=== PATIENT | male | born 1970 | race Caucasian/White ===

== ENCOUNTER → 2022-04-27 07:32 | Outpatient (CLI) | payer OTHER, SELFPAY ==
--- NOTE | 2022-04-27 | DI.MRI.S_ITS ---
PROCEDURE: MR KNEE LT WO CON INDICATIONS: Pain in left knee TECHNIQUE: Noncontrast sagittal PD fast spin echo and T2 fast spin echo with fat saturation, sagittal 3-D FLASH with fat saturation; coronal T1 spin echo and PD fast spin echo with fat saturation, and axial PD fast spin echo with fat saturation through the knee. COMPARISON: None. FINDINGS: Image quality: Excellent. Menisci: Peripheral displacement of medial meniscus bowing medial collateral ligament is seen. There is suggestion of oblique tear involving medial periphery of posterior horn medial meniscus extending to inferior articulating surface. Lateral meniscus is intact. The meniscal root ligaments appear intact. Cruciate ligaments: The anterior cruciate ligament is mildly thickened with subtle intrasubstance T2 hyperintense signal at its tibial insertion. PCL is intact. Medial structures: The medial collateral ligament appears mildly thickened. The posterior oblique ligament, semimembranosus tendon insertions, oblique popliteal ligament, and meniscocapsular junction appear intact. Visualized portions of the pes anserinus tendons appear normal. No abnormal bursal fluid. Lateral structures: The lateral collateral ligament is thickened with intrasubstance T2 hyperintense signal. The long and short heads of the biceps femoris tendon appear intact. The popliteus tendon appears normal; the popliteofibular ligament appears intact. Iliotibial band appears normal. Anterior structures: Distal quadriceps tendinosis and low-grade partial-thickness tear at its superior patellar insertion is seen. Patellar tendon is intact.. Patellar alignment is normal. No femoral trochlear dysplasia or ventral trochlear prominence. No edema in the infrapatellar fat pad. Bones and cartilage: Mild edema and subcortical cystic changes are noted involving lateral portion of tibial spine near distal ACL insertion. No discrete fracture line. Mild tricompartmental osteoarthritis and low-grade chondromalacia is seen. Joint space: There is small knee joint fluid. No Marshall's cyst. Normal appearing synovial plicae are incidentally noted. IMPRESSION: 1. Peripheral displacement of medial meniscus with oblique tear involving posterior horn of medial meniscus extending to inferior articulating surface. Lateral meniscus is intact. 2. Suggestion of mild distal ACL sprain/partial-thickness tear. No full-thickness ACL rupture. PCL is intact. 3. Very low-grade MCL sprain. Low to moderate grade LCL sprain/partial-thickness tear. 4. Distal quadriceps tendinosis/low-grade partial-thickness tear at its superior patellar insertion. Patellar tendon is intact. 5. Mild tricompartmental osteoarthritis and low-grade chondromalacia. No fracture or dislocation. Small joint effusion, no gross loose bodies. Dictated by: Hemanth Lawson M.D. on 04/27/2022 at 9:14 Approved by: Hemanth Lawson M.D. on 04/27/2022 at 9:17
== END ==
PROVIDERS: PCP Family Medicine; Referring Provider Family Medicine; Visit Provider Family Medicine
DX: S83.222A Peripheral tear of medial meniscus, current injury, left knee, initial encounter (principal); S83.422A Sprain of lateral collateral ligament of left knee, initial encounter; S76.112A Strain of left quadriceps muscle, fascia and tendon, initial encounter; M25.562 Pain in left knee; M17.12 Unilateral primary osteoarthritis, left knee; M94.262 Chondromalacia, left knee; M25.462 Effusion, left knee
CPT/HCPCS: 73721